=== PATIENT | female | born 1935 | race Caucasian/White ===

== ENCOUNTER 2024-06-30 08:04 | Day surgery (SDC) | payer MEDICARE ==
[~2024-06-30] VITALS: Ht 157.5 cm; Wt 59.0 kg
[2024-06-30] MEDS ORDERED: NS FLUSH ICA (08:30)
[2024-06-30 08:37] VITALS: BP 209/80; PULSE 52; TEMP 98.8
[2024-06-30] MEDS ORDERED: SYNTHROID 0.10.15 MG PO (08:58)
[2024-06-30] MEDS ORDERED: CVS SPECTRAVIT1 EA15 PO (08:59)
[2024-06-30] MEDS ORDERED: LOTENSIN40 MG PO (08:59)
[2024-06-30] MEDS ORDERED: NORVASC 5MG5 MG/TAB PO (08:59)
[2024-06-30] MEDS ORDERED: PRESERVISION A1 EAC3 PO (09:00)
[2024-06-30] MEDS ORDERED: CALCIUM 600 PLU1 TAB PO (09:00)
[2024-06-30] MEDS ORDERED: NS FLUSH ICA SCH (09:00)
[2024-06-30] MEDS ORDERED: BIOTIN10000 MC1 PO (09:01)
[2024-06-30] MEDS ORDERED: B-121000 MCG PO (09:01)
[2024-06-30] MEDS ORDERED: ASPIRIN 81M81 MG/TA2 PO (09:02)
[2024-06-30] MEDS ORDERED: CEPHALEXIN500 M1 PO (10:12)
--- NOTE | 2024-06-30 10:29 | NUR ---
PT TOLERATED RECOVERY PERIOD WELL. PT REMAINED FREE FROM ACUTE CONCERNS AND COMPLAINTS. CHEST DRESSING REMAINED CLEAN DRY AND INTACT UPON DISCHARGE. PT WAS ACCOMPANIED TO THE MAIN LOBBY BY THIS RN AND DAUGHTER. PT AND DAUGHTER VERBALIZED UNDERSTANDING OF DISCHARGE INSTRUCTIONS.
== END 2024-06-30 10:31 | disposition home or self-care (01) ==
LOC: COL.CAR 08:04
DX: I48.0 Paroxysmal atrial fibrillation (principal); I47.10 Supraventricular tachycardia, unspecified
CPT/HCPCS: 27886; C1764